=== PATIENT | female | born 1970 | race Caucasian/White ===

== ENCOUNTER → 2017-04-18 | Outpatient (CLI) | payer BC ==
--- NOTE | 2017-04-19 08:22 | REPMRS ---
Patient History The patient states she had a clinical breast exam in 04/24 No known family history of cancer. Digital Woman Screen Mammo: April 18, 2017 - Exam #: [id number] Bilateral CC and MLO view(s) were taken. Technologist: Michelle Valdovinos, Technologist Prior study comparison: January 05, 2016, digital woman screen mammo performed at [facility]. October 22, 2014, digital woman screen mammo performed at [facility]. February 25, 2010, bilateral digital mammo screening bilat performed at [facility] to [facility]. FINDINGS: There are scattered fibroglandular densities. There has been no change in the appearance of the mammogram from the prior studies. There is a mild amount of scattered fibroglandular density which is fairly symmetric. There is no interval development of dominant mass, architectural distortion, or clustered microcalcification suggestive of malignancy. ASSESSMENT: BI-RADS/ACR category 1 mammogram. Negative. Recommendation Routine screening mammogram in 1 year (for women over age 40). This mammogram was interpreted with the aid of an FDA-approved computer-aided dectection system. Electronically Signed By: Richardson Simon MD 04/19/17 0822
== END ==
LOC: M WHC 15:19
PROVIDERS: ATTEND Nurse Practitioner Family
DX: Z12.31 Encounter for screening mammogram for malignant neoplasm of breast (principal)

== ENCOUNTER → 2017-05-29 | Outpatient (CLI) | payer BC ==
[2017-05-29 19:40] LABS: BASO % 0.3 % (0.0-1.0); EOS # 0.1 10^3/uL (0.0-0.50); EOS % 1.1 % (0.0-3.0); IMMATURE GRANULOCYTE % 0.3 % (0-0); MEAN CORPUSCULAR HEMOGLOBIN 31.2 pg (27.0-33.0); MEAN CORPUSCULAR HGB CONC 33.8 g/dl (32.0-36.5); MEAN CORPUSCULAR VOLUME 92.3 fl (80.0-96.0); MONO # 0.5 10^3/uL (0.0-0.8); MONO % 7.2 % (0.0-5.0); NEUTROPHILS # 3.8 10^3/uL (1.8-7.7); NEUTROPHILS % 59.1 % (36.0-66.0); PLATELET COUNT, AUTOMATED 214 10^3/uL (150-450); RED CELL DISTRIBUTION WIDTH 12.5 % (11.5-14.5); WHITE BLOOD COUNT 6.4 10^3/uL (4.0-10.0)
[2017-05-29 20:16] LABS: PERCENT SATURATION 21.8 % (13.2-45.0)
== END ==
LOC: M WUC 14:58
PROVIDERS: ATTEND Physician Assistant Medical
DX: R42 Dizziness and giddiness (principal)

== ENCOUNTER → 2018-03-21 | Outpatient (CLI) | payer BC ==
[2018-03-21 16:02] LABS: ALBUMIN/GLOBULIN RATIO 1.25 (1.00-1.93); ALKALINE PHOSPHATASE 62 U/L (45-117); ALT/SGPT 17 U/L (12-78); ANION GAP 6 MEQ/L (8-16); AST/SGOT 16 U/L (7-37); BILIRUBIN,TOTAL 0.4 MG/DL (0.2-1.0); BLOOD UREA NITROGEN 7 MG/DL (7-18); CALCIUM LEVEL 8.7 MG/DL (8.5-10.1); CARBON DIOXIDE LEVEL 28 MEQ/L (21-32); CHLORIDE LEVEL 106 MEQ/L (98-107); CREATININE FOR GFR 0.77 MG/DL (0.55-1.30); FREE T4 1.07 NG/DL (0.76-1.46); GLOMERULAR FILTRATION RATE > 60.0 (>58); GLUCOSE, FASTING 83 MG/DL (70-100); POTASSIUM SERUM 4.5 MEQ/L (3.5-5.1); SODIUM LEVEL 140 MEQ/L (136-145); THYROID STIMULATING HORMONE 0.983 uIU/ML (0.358-3.740); TOTAL 25(OH) VITAMIN D 37.5 NG/ML (30.0-100.0); TOTAL PROTEIN 7.2 GM/DL (6.4-8.2)
== END ==
LOC: M WUC 10:21
DX: N18.9 Chronic kidney disease, unspecified (principal)
CPT/HCPCS: 84443

== ENCOUNTER → 2018-03-28 | Outpatient (CLI) | payer BC ==
[2018-03-28 20:33] LABS: C REACTIVE PROTEIN QUANTITATIV < 0.30 MG/DL (0.00-0.30); PHOSPHORUS LEVEL 3.9 MG/DL (2.5-4.9)
[2018-03-28 20:45] LABS: PTH INTACT 31.6 PG/ML (18.5-88.0)
[2018-03-30 12:59] LABS: ANTINUCLEAR ANTIBODIES DIRECT Negative (Negative)
== END ==
LOC: M WUC 17:19
DX: H18.429 Band keratopathy, unspecified eye (principal); R05 Cough
CPT/HCPCS: 84100

== ENCOUNTER → 2018-11-15 | Outpatient (CLI) | payer BC ==
--- NOTE | 2018-11-15 11:59 | REPMRS ---
Patient History The patient states she had a clinical breast exam in 11/2018. No known family history of cancer. 3D TOMOSYNTHESIS WAS PERFORMED. Digital Woman Screen Mammo: November 15, 2018 - Exam #: [id number] Bilateral CC and MLO view(s) were taken. Technologist: Michelle Valdovinos, Technologist Prior study comparison: April 18, 2017, digital woman screen mammo performed at [facility]. January 05, 2016, digital woman screen mammo performed at [facility]. FINDINGS: The breast tissue is heterogeneously dense. This may lower the sensitivity of mammography. There has been no change in the appearance of the mammogram from the prior studies. There is a moderate amount of residual fibroglandular tissue which is fairly symmetric. There is no interval development of dominant mass, areas of architectural distortion, or clustered microcalcification typical of malignancy. Assessment: BI-RADS/ACR category 1 mammogram. Negative Mammogram. Recommendation Routine screening mammogram in 1 year (for women over age 40). This mammogram was interpreted with the aid of an FDA-approved computer-aided dectection system. Electronically Signed By: Orlando Donaldson MD 11/15/18 8547
== END ==
LOC: M WHC 10:34
PROVIDERS: ATTEND Nurse Practitioner Family
DX: Z12.31 Encounter for screening mammogram for malignant neoplasm of breast (principal)

== ENCOUNTER → 2018-11-15 | Outpatient (REF) | payer BC ==
[2018-11-19 14:16] LABS: HPV HYBRID CAPTURE II Negative (Negative)
== END ==
LOC: M SFHCWAGY 11:21
PROVIDERS: ATTEND Nurse Practitioner Family
DX: Z12.4 Encounter for screening for malignant neoplasm of cervix (principal)
CPT/HCPCS: 87624; G0123

== ENCOUNTER → 2018-11-21 | Outpatient (CLI) | payer BC ==
--- NOTE | 2018-11-22 16:12 | REP ---
Clinical: Pelvic pain . Technique: Transabdominal pelvic ultrasound followed by transvaginal examination for better evaluation of the endometrium and adnexa with color Doppler evaluation of the ovaries. Findings: Bladder is unremarkable and measures 12.5 x 9.0 x 10.2 cm . Normal anteverted uterus measures 9.6 x 4.2 x 5.6 cm . The endometrial complex measures 6.3 mm thickness. No discrete uterine or endometrial abnormalities are appreciated. Incidental subcentimeter Nabothian cysts noted. Bilateral ovaries are normal in appearance and vascularity without evidence for torsion. Right ovary measures 1.7 x 1.4 x 2.3 cm ; R I = 0.44 . Left ovary measures 3.3 x 2.4 x 3.1 cm ; R I = 0.57 . No pelvic fluid or adnexal mass lesion . Impression: 1. Nabothian cysts. Otherwise normal pelvic ultrasound.
== END ==
LOC: M WHC 13:38
PROVIDERS: ATTEND Nurse Practitioner Family
DX: N88.8 Other specified noninflammatory disorders of cervix uteri (principal); R10.2 Pelvic and perineal pain

== ENCOUNTER 2019-03-12 09:34 | Day surgery (SDC) | payer BC ==
[~2019-03-12] VITALS: Ht 154.9 cm; Wt 70.2 kg
[~2019-03-12 09:34] MED LIST: LR 1,000 ML IV ONE; OMEP10CA78 PO; SM LTAB5 PO
[2019-03-12 10:00] LABS: HEMATOCRIT 43.7 % (36.0-47.0); HEMOGLOBIN 14.7 g/dl (12.0-15.5); MEAN CORPUSCULAR HGB CONC 33.6 g/dl (32.0-36.5); MEAN CORPUSCULAR VOLUME 95.2 fl (80.0-96.0); PLATELET COUNT, AUTOMATED 218 10^3/uL (150-450); RED BLOOD COUNT 4.59 10^6/uL (4.00-5.40); WHITE BLOOD COUNT 5.2 10^3/uL (4.0-10.0)
[2019-03-12 10:14] LABS: URINE PREG TEST NEGATIVE (NEGATIVE)
[2019-03-12 10:25] LABS: BLOOD UREA NITROGEN 8 MG/DL (7-18); CALCIUM LEVEL 8.5 MG/DL (8.5-10.1); CARBON DIOXIDE LEVEL 32 MEQ/L (21-32); CHLORIDE LEVEL 109 MEQ/L (98-107); GLOMERULAR FILTRATION RATE > 60.0 (>58); GLUCOSE, FASTING 94 MG/DL (70-100); POTASSIUM SERUM 4.3 MEQ/L (3.5-5.1); SODIUM LEVEL 142 MEQ/L (136-145)
[2019-03-12] MEDS ORDERED: fentaNYL 250 MCG/5 ML INJECTION (J3010) As Ordered ONE (10:35)
[2019-03-12] MEDS ORDERED: PROPOFOL 200 MG/20 ML VIAL As Ordered ONE (10:36)
[2019-03-12] MEDS ORDERED: MIDAZOLAM INJ 2 MG/2 ML VIAL (J2250) As Ordered ONE (10:36)
[2019-03-12] MEDS ORDERED: ONDANSETRON 4MG/2ML VIAL (J2405) As Ordered ONE (10:36)
[2019-03-12] MEDS ORDERED: ROCURONIUM BROMIDE 50 MG/5 ML VIAL As Ordered ONE (10:36)
[2019-03-12] MEDS ORDERED: dexameTHASONE 4 MG/ML 1ML VIAL (J1100) As Ordered ONE (10:36)
[2019-03-12] MEDS ORDERED: LIDOCAINE 2% INJ 100 MG/5 ML SDV (FOR ANES.) As Ordered ONE (10:36)
[2019-03-12] MEDS ORDERED: FLUORESCEIN 10% (100MG/ML) 5 ML VIAL As Ordered ONE (11:47)
[2019-03-12] MEDS ORDERED: BUPIVACAINE/EPIN 0.25% 30 ML VIAL As Ordered ONE (11:47)
[2019-03-12] MEDS ORDERED: METOCLOPRAMIDE INJ 10MG/2ML VIAL (J2765) As Ordered ONE (12:36)
[2019-03-12] MEDS ORDERED: KETOROLAC 60 MG/2 ML VIAL (J1885) As Ordered ONE (12:36)
[2019-03-12] MEDS ORDERED: SUGAMMADEX SODIUM 500 MG/5 ML VIAL (BRIDION) As Ordered ONE (12:37)
[2019-03-12] MEDS ORDERED: ACETAMINOPHEN 1000MG 100ML IV BTL (OFIRMEV) (J0131 PER 10MG) As Ordered ONE (12:40)
[2019-03-12] MEDS ORDERED: PERCOCET 5MG/325MG TAB PO PRN ×2 (13:30)
[2019-03-12] MEDS ORDERED: PERCOCET PO (13:34)
[2019-03-12] MEDS ORDERED: IBUP80TA PO (13:34)
[2019-03-12] MEDS ORDERED: oxyCODONE 5MG TAB As Ordered ONE (13:56)
[2019-03-12] MEDS ORDERED: HYDROMORPHONE HCL 0.5 MG/ 0.5 ML SYRINGE (J1170 PER 1) IV PRN (14:00)
[2019-03-12] MEDS ORDERED: LR 1,000 ML IV SCH (14:00)
[2019-03-12] MEDS ORDERED: PROMETHAZINE INJ 25 MG/ML VIAL (J2550) IV PRN (14:00)
[2019-03-12] MEDS ORDERED: oxyCODONE 5MG TAB PO PRN (14:00)
[2019-03-12] MEDS ORDERED: fentaNYL 100 MCG/2 ML INJECTION (J3010) IV PRN (14:00)
[2019-03-12] MEDS ORDERED: METOCLOPRAMIDE INJ 10MG/2ML VIAL (J2765) IV PRN (14:00)
[2019-03-12] MEDS ORDERED: ONDANSETRON 4MG/2ML VIAL (J2405) IV PRN (14:00)
[2019-03-12 14:38] VITALS: BP 149/80
[2019-03-12 15:33] VITALS: BP 117/72
[2019-03-12 16:40] VITALS: BP 117/72
[2019-03-12 17:40] VITALS: BP 138/78
[2019-03-12] MEDS: SIMETHICONE 80 MG CHEW TAB PO PRN (17:51)
[2019-03-12 18:35] VITALS: BP 130/78
[2019-03-12 19:40] VITALS: BP 107/61
[2019-03-12] MEDS: DOCUSATE SODIUM 100 MG CAP PO SCH (20:14)
[2019-03-12] MEDS: LR 1,000 ML IV SCH ×2 (20:14→21:27)
[2019-03-12] MEDS: IBUPROFEN 800 MG TAB PO SCH (21:59)
[2019-03-13 01:30] VITALS: BP 113/55
[2019-03-13] MEDS: IBUPROFEN 800 MG TAB PO SCH (04:32)
[2019-03-13] MEDS: SIMETHICONE 80 MG CHEW TAB PO PRN (04:33)
[2019-03-13] MEDS: LR 1,000 ML IV SCH (04:34)
[2019-03-13 06:00] VITALS: BP 107/60
--- NOTE | 2019-03-13 07:34 | RO ---
DATE OF PROCEDURE: 03/12/2019 Fatou is a 49-year-old female with extensive history of pelvic pain and irregular cycle. After counseling in the office, decision was made to proceed with a robotic-assisted total hysterectomy, removal of both tubes and ovaries, and cystoscopy. PREOPERATIVE DIAGNOSES: 1. Pelvic pain. 2. Irregular cycle. POSTOPERATIVE DIAGNOSES: 1. Pelvic pain. 2. Irregular cycle. PROCEDURE: 1. Robotic-assisted total hysterectomy. 2. Bilateral salpingo-oophorectomy. 3. Cystoscopy. SURGEON: Dr. Kyaw Wellington [employer] SERVICE OFFICER: Aicha Calixto ANESTHESIA: General. COMPLICATIONS: None. ESTIMATED BLOOD LOSS: Less than 50 mL. FINDGINS: An enlarged uterus with normal tubes and ovaries. On cystoscopy, bilateral ureters were found to be patent. No evidence of any bladder injury noted. DESCRIPTION OF PROCEDURE: After obtaining informed consent, the patient was taken to the operating room where general anesthetic was found to be adequate. She was then draped and prepped in the usual sterile fashion in the dorsal lithotomy position. At this point, a Harrington catheter was placed in the bladder for drainage. We then placed a HUMI II uterine manipulator. Attention was then turned to the abdomen where an 8 mm supraumbilical incision was made. Using the Veress needle, the abdomen was insufflated with CO2 gas to approximately 3.5 liters. We then inserted the 8 mm trocar under direct visualization. Two left 8 mm lateral ports were placed as well as one right 8 mm lateral port for robotic arm one and two and the assist port. At this point, the patient was placed in steep Trendelenburg. The robot was brought to the patient's right side and docked in the usual fashion. After docking the robot and proper targeting, the instruments were then placed, a vessel sealer as well as a bipolar grasper was placed. I then unscrubbed and went to the surgeon console and began the hysterectomy. The infundibulopelvic ligament was identified. This was cauterized and cut using the vessel sealer. Serial bites were then taken all the way down to the round ligament, the uterine artery to the uterosacral ligament. These were cauterized and cut. At this point, the anterior leaflet of the broad ligament was dissected to create a bladder flap. This was carried to the opposite side. The opposite side again was identified and the infundibulopelvic ligament was taken down in a similar fashion all the way down to the uterosacral ligament. After securing bilateral uterine arteries, the vessel sealer was removed and Endo shear was placed. Anterior and posterior colpotomy was then performed. The uterus, cervix, bilateral fallopian tubes and ovaries were removed through the vagina. At this point, 1 mL of Furacin was given by the anesthesiologist to assist in the cystoscopy. We then closed the vaginal cuff using a #2-0 V-Loc suture in a running fashion. The peritoneum over the vaginal cuff was also closed in a running fashion. The pelvis copiously irrigated with normal saline and suctioned out. I then rescrubbed and went to the patient's side and retrograde filled the bladder with 230 mL of normal saline. The Harrington catheter was removed. The cystoscope was inserted. Cystoscopy was performed. Bilateral urethral jets were noted on cystoscopy. No evidence of any bladder injury noted. At this point, the cystoscope was removed. The Harrington catheter was replaced to drain the bladder. I then turned my attention to the abdomen where the robotic ports were removed and the sites were closed using #3-0 Vicryl in a subcuticular fashion. 0.25% Marcaine was placed for postoperative pain. Dermabond placed. The patient tolerated procedure well. She was then transferred to the recovery room in stable condition.
[2019-03-13] MEDS: DOCUSATE SODIUM 100 MG CAP PO SCH (08:45)
== END 2019-03-13 10:17 | disposition home or self-care (01) ==
LOC: M SDC 09:34 → M MSPAV 14:29 → M SDC 03-13 10:17
PROVIDERS: ATTEND Obstetrics & Gynecology
DX: R10.2 Pelvic and perineal pain (principal); N92.6 Irregular menstruation, unspecified; N83.12 Corpus luteum cyst of left ovary; K21.9 Gastro-esophageal reflux disease without esophagitis; Z91.040 Latex allergy status; Z79.899 Other long term (current) drug therapy; F17.210 Nicotine dependence, cigarettes, uncomplicated
CPT/HCPCS: 36415; 58571; 80048; 84703; 85027; 86850; 86900; 86901; 88307; 96360; 96361; J0131; J0690; J1100; J1885; J2250; J2405; J2765; J3010

== ENCOUNTER → 2019-11-18 | Outpatient (CLI) | payer BC ==
[~2019-11-18] MED LIST changes: +IBUP80TA PO; -LR 1,000 ML IV ONE; +PERCOCET PO
--- NOTE | 2019-11-18 10:03 | REPMRS ---
Patient History The patient states she had a clinical breast exam in November 2019. Patient is postmenopausal. No known family history of cancer. Digital Woman Screen Mammo: November 18, 2019 - Exam #: [id number] Bilateral CC and MLO view(s) were taken. Technologist: Lexie Huffman, Technologist Prior study comparison: November 15, 2018, bilateral digital woman screen mammo performed at [facility]. April 18, 2017, digital woman screen mammo performed at [facility]. January 05, 2016, digital woman screen mammo performed at [facility]. FINDINGS: There are scattered fibroglandular densities. The Volpara volumetric breast density category is:B. There has been no change in the appearance of the mammogram from the prior studies. There is a mild amount of scattered fibroglandular density which is fairly symmetric. There is no interval development of dominant mass, architectural distortion, or grouped microcalcification suggestive of malignancy. 3-D tomosynthesis shows no additional findings. Assessment: BI-RADS/ACR category 1 mammogram. Negative Mammogram. Recommendation Routine screening mammogram of both breasts in 1 year (for women over age 40). This patient's Lifetime Breast Cancer Risk is estimated at 7.7 %. This mammogram was interpreted with the aid of an FDA-approved computer-aided dectection system. Electronically Signed By: Richardson Simon MD 11/18/19 6928
== END ==
LOC: M WHC 08:39
PROVIDERS: ATTEND Nurse Practitioner Family
DX: Z12.31 Encounter for screening mammogram for malignant neoplasm of breast (principal)

== ENCOUNTER → 2020-07-19 | Outpatient (CLI) | payer BC ==
[2020-07-19 11:57] LABS: HEMATOCRIT 41.9 % (36.0-47.0); MEAN CORPUSCULAR HEMOGLOBIN 30.8 pg (27.0-33.0); MEAN CORPUSCULAR HGB CONC 33.4 g/dl (32.0-36.5); MEAN CORPUSCULAR VOLUME 92.1 fl (80.0-96.0); PLATELET COUNT, AUTOMATED 214 10^3/uL (150-450); RED BLOOD COUNT 4.55 10^6/uL (4.00-5.40); WHITE BLOOD COUNT 4.9 10^3/uL (4.0-10.0)
[2020-07-19 12:52] LABS: BLOOD UREA NITROGEN 13 MG/DL (7-18); CARBON DIOXIDE LEVEL 30 MEQ/L (21-32); CHLORIDE LEVEL 105 MEQ/L (98-107); CHOLESTEROL LEVEL 239 MG/DL (<200); CHOLESTEROL RISK RATIO 5.085 (<5); CREATININE FOR GFR 0.87 MG/DL (0.55-1.30); GLOMERULAR FILTRATION RATE > 60.0 (>51); GLUCOSE, FASTING 87 MG/DL (70-100); HDL CHOLESTEROL 47 MG/DL (>40); LDL CHOLESTEROL 159 MG/DL (<100); NON-HDL-C 192 MG/DL; POTASSIUM SERUM 4.1 MEQ/L (3.5-5.1); SODIUM LEVEL 141 MEQ/L (136-145); TRIGLYCERIDES LEVEL 167 MG/DL (<150)
== END ==
LOC: M WUC 08:10
PROVIDERS: ATTEND Ophthalmology
DX: H18.421 Band keratopathy, right eye (principal)

== ENCOUNTER → 2020-08-20 | Outpatient (CLI) | payer BC ==
[~2020-08-20] MED LIST changes: +CELE1CAP9; +CLAR10CA3 PO; +MM S100C PO; +SYST1SOL4 OP; +primrose oil PO
== END ==
LOC: M LABSMTC 11:10
PROVIDERS: ATTEND Anesthesiology
DX: Z01.812 Encounter for preprocedural laboratory examination (principal); Z20.822 Contact with and (suspected) exposure to COVID-19

== ENCOUNTER 2020-08-25 12:21 | Day surgery (SDC) | payer BC ==
[~2020-08-25] VITALS: Ht 154.9 cm; Wt 72.1 kg
[~2020-08-25 12:21] MED LIST changes: +NS 1,000 ML IV ONE
--- OUTSIDE RECORDS SUMMARY | 2020-08-25 12:25 | CCD | Continuity of Care Document ---
Author Fatou Levi BROWN SOURER Organization Unknown Address [address], [address] [place] [address] Phone [phone] Care Team Providers Care Fur Pointer Name Role Phone Fina Wen N.P. AUTM [phone] Problems Description No Information Available Social History Type Date Description Comments Sex Unknown Tobacco Use Start: Unknown currently smokes 1/2 Pack Daily Recreational Drug Use Denies Drug Use Tobacco Use Start: Unknown Patient is a current smoker, smo kes every day 1/2-1 PPD Allergies, Adverse Reactions, Alerts Active Allergies Reaction Severity Comments Date Latex 08/09/2020 Medications Active Medications SIG Qnty Indications Ordering Provide r Date Flonase 50mcg/Act Suspension 2 sprays per nostril daily 3monthsu 472.0 Vahe Hall MD 08/04/2009 Loratadine 10mg Tablets 1 tab po qd Unknown Celecoxib 200mg Capsules 1 ta b po qd Fina Wen, N.P. Fluzone Quadrivalent Suspe nsion as Directed Unknown Docusate Sodium 100mg Capsules 1 by mouth twice a day Unknown Evening Melvin Oil 1000mg Capsul es 1 tab po bid Unknown Immunizations Description No Information Available Vital Signs Date Vital Result Comment 08/09/2020 1:23pm BP Systolic 122 mmHg BP Diastolic 64 mmHg Height 63 inches 5'3" Weight 164.12 lb BMI (Body Mass Index) 29.1 kg/m2 Ruth Body Weight 115 lb Weight 74.447 kg BSA (Body Surface Area) 1.78 m2 08/04/2009 1:53pm Body Temperature 98.1 F Height 63 inches 5'3" Weight 201.00 lb BMI (Body Mass Index) 35.6 kg/m2 Ruth Body Weight 115 lb Weight 91.174 kg Results Description No Information Available Procedures Description No Information Available Medical Devices Description No Information Available Encounters Description No Information Available Assessments Date Code Description Provider 08/09/2020 Z12.11 Encounter for screening for ramirez gnant neoplasm of colon Stan Rodriguez NP Plan of Treatment No Information Available Functional Status Description No Information Available Mental Status Description No Information Available Referrals Refer to Reason for Referral Status Appt Date Orlando Mosqueda D.O. COLONOSCOPY Scheduled 08/03/[address] [place] [phone]
--- OUTSIDE RECORDS SUMMARY | 2020-08-25 12:26 | CCD ---
Author Author Pradeep Azevedo MD [facility] Organization Pradeep Azevedo MD [facility] Address [address] [address] Phone Care Team Providers Care Intelligent Systems Engineer Name Role Phone Stan OD, Froilan PP [phone] Guadalupe DO, Edward Unavailable [phone] Neha Erickson M.D. Unavailable [phone] Reason for Referral No Reason for Referral Recorded Problems Includes: Active, inactive, and resolved Problems All Visits Onset Date - Time Resolved Date - Time Provider Co ndition Status Corneal Degeneration Band Keratopathy 07/06/2020 - 12:00AM Edward Butcher DO Active Corneal Scar 07/06/2020 - 12:00AM Edward Butcher DO Inactive Cataract Senile Nuclear 07/06/2020 - 12:00AM Edward gonzalez DO Active Dry Eye Syndrome 07/06/2020 - 12:00AM Edward fisher DO Active Vitreous Disorders Degeneration 07/06/2020 - 12:00AM Darya Butcher DO Active Plan of Treatment Pending Tests Order Diagnosis Results Due Ordering Provi chris Lab BMP- 08/05/20 Edward Macdonald in DO Lab CBC- 08/05/20 Edward Macdonald in DO Assessments Includes: Assessments for all patient encounters Findings Encounter Date Band keratopathy NEW PATIENT WITH REFERRAL with Edward gonzalez DO 07/06/2020 Dry eye syndrome NEW PATIENT WITH REFERRAL with Edward gonzalez DO 07/06/2020 Nuclear senile cataract NEW PATIENT WITH REFERRAL with Junito Butcher DO 07/06/2020 Vitreous degeneration NEW PATIENT WITH REFERRAL with Edward Butcher DO 07/06/2020 Instructions Instructions not supported for this document typeNo Instructions Recorded Medical Equipment - Implanted Devices Includes: Current and historical DevicesNo Medical Equipment Recorded Medications Includes: Current and historical Medications Current Medications (continue as prescribed) Loratadine 10 MG Oral Tablet 07/06/2020 Provider: Diagnosis: Omeprazole 20 MG Oral Capsule Delayed Release 07/06/2020 Provider: Diagnosis: Docusate Sodium 100 MG Oral Capsule 07/06/2020 Prov ider: Diagnosis: Black Cohosh 40 MG Oral Capsule 07/06/2020 Provider : Diagnosis: Medications Administered Includes: Administered Medications in patient's chartNo Administered Medications Recorded Vital Signs Includes: Vital Signs from 07/06/2019 through 07/06/2020No Vital Signs Recorded For Specified Dates Results Includes: Results from 07/06/2019 through 07/06/2020No Results Recorded For Specified Dates History of Present Illness History of Present Illness not supported for this document typeNo History of Present Illness Recorded Social History Description Last Updated Alcohol consumption occasionally 07/06/2020 Smoking 0.5 packs of cigarettes per day 07/06/2020 Not using drugs 07/06/2020 Tobacco use 07/06/2020 Current smoker 07/06/2020 Smoking status : Current everyday smoker 07/06/2020 Procedures and Surgical History Includes: Procedures from 07/06/2019 through 07/06/2020 Procedures Code Diagnosis Performing Provider Service Location Service Date Medical Eye Exam 10061 Band keratopathy, ri ght eye, Age-related nuclear cataract, bilateral, Dry eye syndrome of bilateral lacrimal glands Edward Butcher DO 07/06/2020 Surgical History Last Updated Surgical / procedural history Appendect zainab 86/87, [place] Teeth Removal 2015, Hysterectomy 03/2019, 07/06/2020 Medical History Includes: Medical History in patient's chart Description Last Updated Reported medical history Left Leg Injur y 2001, Right Leg Injury 2006, Menopause, Allergies, Reflux 07/06/2020 Currently wearing eyeglasses 07/06/2020 Family History Includes: Family History in patient's chart Description Last Updated Daughter's history of multiple sclerosis 07/06/2020 Daughter's history of thyroid disorder 07/06/2020 Maternal history of strabismus 07/06/2020 Maternal history of thyroid disorder 07/06/2020 Son's history of multiple sclerosis 07/06/2020 Review of Systems Review of Systems not supported for this document typeNo Review of Systems Recorded Mental Status Mental Status not supported for this document type Description Oriented to time, place, and person Functional Status Functional Status not supported for this document typeNo Functional Status Recorded Physical Exam Physical Exam not supported for this document typeNo Physical Exam Recorded Immunizations Includes: Immunizations in patient's chartNo Immunizations Recorded Allergies Includes: Active, inactive, and resolved AllergiesNo Known Allergies Encounters Includes: Encounters from 07/06/2019 through 07/06/2020 Encounter Provider Location Date Check-In Time Check-Out Time D iagnosis NEW PATIENT WITH REFERRAL Edward Guadalupe Tena MD [facility] 07/06/2020 7:25AM 8:27AM Dry Eye Syndrome, Co rneal Degeneration Band Keratopathy, Cataract Senile Nuclear, Vitreous Disorders Degeneration Insurance Includes: Active Insurance Policies Plan Name Member ID Group # Subscriber Relationship Effective Da addi 1 - [employer]/BS [id number] Gilbo, Gene Advance Directives Includes: Current Advance DirectivesNo Advance Directives Recorded Health Concerns Includes: Active Health ConcernsNo Active Health Concerns Recorded Goals Includes: Active GoalsNo Active Goals Recorded Interventions Includes: Interventions for active GoalsNo Interventions Recorded Evaluations & Outcomes Includes: Evaluations & Outcomes for active GoalsNo Outcomes Recorded
--- OUTSIDE RECORDS SUMMARY | 2020-08-25 12:26 | CCD ---
Author Author [facility] Organization [facility] Address Unknown Phone Unavailable Care Team Providers Care Pigment And Lacquer Mixer Name Role Phone Pleskach, Fina HOME MANAGEMENT SUPERVISOR Unavailable Unavailable Pleskach, Fina HOME MANAGEMENT SUPERVISOR Unavailable Unavailable Pleskach, Fina HOME MANAGEMENT SUPERVISOR Unavailable Unavailable Pleskach, Fina HOME MANAGEMENT SUPERVISOR Unavailable Unavailable Pleskach, Fina HOME MANAGEMENT SUPERVISOR Unavailable Unavailable Pleskach, Fina HOME MANAGEMENT SUPERVISOR Unavailable Unavailable Pleskach, Fina HOME MANAGEMENT SUPERVISOR Unavailable Unavailable Pleskach, Fina HOME MANAGEMENT SUPERVISOR Unavailable Unavailable Pleskach, Fina HOME MANAGEMENT SUPERVISOR Unavailable Unavailable Pleskach, Fina HOME MANAGEMENT SUPERVISOR Unavailable Unavailable Pleskach, Fina HOME MANAGEMENT SUPERVISOR Unavailable Unavailable Pleskach, Fina HOME MANAGEMENT SUPERVISOR Unavailable Unavailable Pleskach, Fina HOME MANAGEMENT SUPERVISOR Unavailable Unavailable Pleskach, Fina HOME MANAGEMENT SUPERVISOR Unavailable Unavailable Pleskach, Fina HOME MANAGEMENT SUPERVISOR Unavailable Unavailable Pleskach, Fina HOME MANAGEMENT SUPERVISOR Unavailable Unavailable Pleskach, Fina HOME MANAGEMENT SUPERVISOR Unavailable Unavailable Pleskach, Fina HOME MANAGEMENT SUPERVISOR Unavailable Unavailable Pleskach, Fina HOME MANAGEMENT SUPERVISOR Unavailable Unavailable Pleskach, Fina HOME MANAGEMENT SUPERVISOR Unavailable Unavailable Pleskach, Fina HOME MANAGEMENT SUPERVISOR Unavailable Unavailable Pleskach, Fina HOME MANAGEMENT SUPERVISOR Unavailable Unavailable Pleskach, Fina HOME MANAGEMENT SUPERVISOR Unavailable Unavailable Pleskach, Fina HOME MANAGEMENT SUPERVISOR Unavailable Unavailable Pleskach, Fina HOME MANAGEMENT SUPERVISOR Unavailable Unavailable Pleskach, Fina HOME MANAGEMENT SUPERVISOR Unavailable Unavailable Pleskach, Fina HOME MANAGEMENT SUPERVISOR Unavailable Unavailable Pleskach, Fina HOME MANAGEMENT SUPERVISOR Unavailable Unavailable Pleskach, Fina HOME MANAGEMENT SUPERVISOR Unavailable Unavailable Pleskach, Fina HOME MANAGEMENT SUPERVISOR Unavailable Unavailable Jolie BUTCHER PB DO Unavailable [phone] Jolie BUTCHER PB DO Unavailable [phone] Jolie BUTCHER PB DO Unavailable [phone] Jolie BUTCHER PB DO Unavailable [phone] Jolie BUTCHER PB DO Unavailable [phone] Jolie BUTCHER PB DO Unavailable [phone] Jolie BUTCHER PB DO Unavailable [phone] Jolie BUTCHER PB DO Unavailable [phone] Jolie BUTCHER PB DO Unavailable [phone] Jolie BUTCHER PB DO Unavailable [phone] Jolie BUTCHER PB DO Unavailable [phone] Jolie BUTCHER PB DO Unavailable [phone] Jolie BUTCHER PB DO Unavailable [phone] Jolie BUTCHER PB DO Unavailable [phone] Jolie BUTCHER PB DO Unavailable [phone] Jolie BUTCHER PB DO Unavailable [phone] Jolie BUTCHER PB DO Unavailable [phone] Jolie BUTCHER PB DO Unavailable [phone] Jolie BUTCHER PB DO Unavailable [phone] Jolie BUTCHER PB DO Unavailable [phone] Jolie BUTCHER PB DO Unavailable [phone] Kareen CONNOR Unavailable Unavailable NIKOLAS, K JIMMY HALEY Unavailable Unavailable NIKOLAS, K JIMMY HALEY Unavailable Unavailable NIKOLAS, K JIMMY HALEY Unavailable Unavailable NIKOLAS, K JIMMY HALEY Unavailable Unavailable NIKOLAS, K JIMMY PA Unavailable Unavailable NIKOLAS, K JIMMY PA Unavailable Unavailable NIKOLAS, K JIMMY PA Unavailable Unavailable NIKOLAS, K JIMMY PA Unavailable Unavailable NIKOLAS, K JIMMY PA Unavailable Unavailable NIKOLAS, K JIMMY PA Unavailable Unavailable NIKOLAS, K JIMMY PA Unavailable Unavailable NIKOLAS, K JIMMY PA Unavailable Unavailable NIKOLAS, K JIMMY PA Unavailable Unavailable NIKOLAS, K JIMMY PA Unavailable Unavailable NIKOLAS, K JIMMY PA Unavailable Unavailable NIKOLAS, K JIMMY PA Unavailable Unavailable NIKOLAS, K JIMMY PA Unavailable Unavailable NIKOLAS, K JIMMY PA Unavailable Unavailable NIKOLAS, K JIMMY PA Unavailable Unavailable Re-disclosure Warning The records that you are about to access may contain information from federally-assisted alcohol or drug abuse programs. If such information is present, then the following federally mandated warning applies: This information has been disclosed to you from records protected by federal confidentiality rules (42 CFR part 2). The federal rules prohibit you from making any further disclosure of this information unless further disclosure is expressly permitted by the written consent of the person to whom it pertains or as otherwise permitted by 42 CFR part 2. A general authorization for the release of medical or other information is NOT sufficient for this purpose. The Federal rules restrict any use of the information to criminally investigate or prosecute any alcohol or drug abuse patient.The records that you are about to access may contain highly sensitive health information, the redisclosure of which is protected by Article 27-F of the [place] State Public Health law. If you continue you may have access to information: Regarding HIV / AIDS; Provided by facilities licensed or operated by the [facility] Office of Mental Health; or Provided by the [facility] Office for People With Developmental Disabilities. If such information is present, then the following [facility] mandated warning applies: This information has been disclosed to you from confidential records which are protected by state law. State law prohibits you from making any further disclosure of this information without the specific written consent of the person to whom it pertains, or as otherwise permitted by law. Any unauthorized further disclosure in violation of state law may result in a fine or correction sentence or both. A general authorization for the release of medical or other information is NOT sufficient authorization for further disc losure. Allergies and Adverse Reactions Type Description Substance Reaction Status Data Source(s ) Allergy to substance No Known Allergies No known allergies (situation ) IZABELA (Pradeep Coe MD [facility]) Family History Family Member Name Family Member Gender Family Member Status Date o f Status Description Data Source(s) Unknown Unknown Problem [facility] Encounters Encounter Providers Location Date Indications Data Source(s ) Outpatient Attender: Fina Wen [facility] Main Office 07/30/2020 0 7:15:00 AM EST [facility] Outpatient<td ID="encounterTypeDescripti onID0">NEW PATIENT WITH REFERRAL</td><td>Pb Butcher DO</td><td>Pradeep Azevedo MD [facility]</td><td>07/06/2020</td><td>7:25AM</td><td>8:27AM</td><td><content ID="encounterDiagnosisID0-0">Dry Eye Syndrome</content>, <content ID="encounterDiagnosisID0-1">Corneal Degeneration Band Keratopathy</content>, <content ID="encounterDiagnosisID0-2">Cataract Senile Nuclear</content>, <content ID="encounterDiagnosisID0-3">Vitreous Disorders Degeneration</content></td> Attender: PB Tena MD [facility] 07/06/2020 07:25:00 AM EST - 07/06/2020 08:27:00 AM ES T Vitreous Disorders DegenerationCataract Senile NuclearCorneal Degeneration Band KeratopathyDry Eye Syndrome [place] (Pradeep Coe MD [facility]) Vitreous Disorders Degeneration 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 Dry Eye Syndrome Outpatient Referrer: JIMMY HALEY 11/27/2019 05:45:00 AM EDT [facility] [address] [place] [address] 11/18/2019 12:00:00 AM EDT eCW1 (Formerly [facility]) Immunizations Vaccine Date Status Description Data Source(s) INFLUENZA VIRUS VACCINE QUADRIVALENT 2019- (6 MOS AN D UP) 06/02/2020 12:00:00 AM EST [facility] Medications Medication Brand Name Start Date Product Form Dose Route Admi nistrative Instructions Pharmacy Instructions Status Indications Reaction Description Data Source(s) 17.5-3.13-1.6 gram 08/18/2020 12:00:00 AM EST recon soln 354 TAKE DIRECTED PER DOCTOR BOWEL PREP TAKE DIRECTED PER DOCTOR BOWEL PREP SOLD: 08/20/2020 [facility] celecoxib 200 MG Oral Capsule Celecoxib 07/30/2020 12:00:00 AM EST ORAL active [facility] 200 mg 07/30/2020 12:00:00 AM EST capsule 30 TAKE ONE CAPSULE BY MOUTH EVERY DAY TAKE ONE CAPSULE BY MOUTH EVERY DAY SOLD: 07/30/2020 [facility] Omeprazole 20 MG Delayed Release Oral Ca psule Omeprazole 20 MG Oral Capsule Delayed Release Omeprazole 20 MG Oral Capsule Delayed Release 07/06/20 20 12:00:00 AM EST 1 active omeprazole 20 MG Delayed Release Oral Capsule IZABELA (Pradeep Coe MD [facility]) Docusate Sodium 100 MG Oral Capsule Docusate Sodium 100 MG O ral Capsule 07/06/2020 12:00:00 AM EST 1 active docusate sodium 100 MG Oral Capsule IZABELA (Pradeep Coe MD [facility]) Black Cohosh 40 MG Oral Capsule Black Cohosh 40 MG Oral Caps ule 07/06/2020 12:00:00 AM EST 1 active Black Co hosh IZABELA (Pradeep Coe MD [facility]) Loratadine 10 MG Oral Tablet Loratadine 10 MG Oral Tablet 12:00:00 AM EST 1 active loratadine 10 MG Oral Tablet IZABELA (Pradeep Coe MD [facility]) Insurance Providers Payer name Policy type / Coverage type Policy ID Covered democrat ID Covered democrat's relationship to moreira Policy [place] Plan Information [place]/307 [id number] SP [id number] [place]/307 [id number] [id number] BCBS of [facility] Other 0 Family Depe ndent Gene Gilbo 0 EXCELLUS BCBS B [id number] P UPO [id number] [place] 302/307 [id number] SP [id number] ANSI-Commercial [id number] [facility] Health Maintenance Organization (O) [id number] Family Dependent [id number] [facility] Health Maintenance Organization (O) [id number] Family Dependent [id number] [facility] Health Maintenance Organization (O) [id number] Family Dependent [id number] BCBS [place] [id number] BS [facility] Health Maintenance Organization (O) [id number] Family Dependent [id number] BS Of [facility] Maintenance Organization ([facility]) Self BCBS [place] 302/307 [id number] SP [id number] [place] BCBS P [id number] S [id number] Problems, Conditions, and Diagnoses Code Display Name Description Problem Type Effective Dates Data Source(s) 379.21 Vitreous Disorders Degeneration Vitreous Disorders Deg eneration Problem 07/06/2020 12:00:00 AM EST IZABELA (Pradeep Coe MD [facility]) 375.15 Dry Eye Syndrome Dry Eye Syndrome Problem 07/06/2020 12 :00:00 AM EST IZABELA (Pradeep Coe MD [facility]) 366.16 Cataract Senile Nuclear Cataract Senile Nuclear Proble m 07/06/2020 12:00:00 AM EST IZABELA (Pradeep Coe MD [facility]) 371.03 Corneal Scar Corneal Scar Problem 07/06/2020 12:00:00 A M EST IZABELA (Pradeep Coe MD [facility]) 371.43 Corneal Degeneration Band Keratopathy Co rneal Degeneration Band Keratopathy Problem 07/06/2020 12:00:00 AM EST IZABELA (Junito Coe MD [facility]) E89.41 [id number] Surgical menopause, symptomatic Problem 11/18/2019 12:00:00 AM EDT eCW1 (Formerly [facility]) Surgeries/Procedures Procedure Description Date Indications Data Source(s) Surgical / procedural history Appendect zainab 86/87, [place] Teeth Removal 2015, Hysterectomy 03/2019, Surgical / procedural history Appendect zainab 86/87, [place] Teeth Removal 2016, Hysterectomy 03/2019, 07/06/2020 12:00:00 AM EST IZABELA (Pradeep Coe MD [facility]) Medical Eye Exam Medical Eye Exam 07/06/2020 12:00:00 AM EST IZABELA (Pradeep Coe MD [facility]) Mammogram 07/09/2019 12:00:00 AM EST M [facility] ([facility] Done through [facility]. Results ID Date Data Source [id number] 08/20/2020 09:40:00 AM EST [facility] Name Value Range Interpretation Code Description Data Taylor rce(s) Supporting Document(s) SARS coronavirus 2 RNA Not Detected [facility] [place] This lab was ordered by [facility] and reported by [facility]. Procedure Social History Code Duration Value Status Description Data Source(s ) Smoking 07/06/2020 08:31:59 AM EST Smokes tobacco daily (findi ng) completed Smokes tobacco daily (finding) IZABELA (Pradeep Coe MD [facility]) Vital Signs ID Date Data Source UNK Name Value Range Interpretation Code Description Data Source(s) Body surface area Derived from formula 1.78 m2 1.78 m2 [facility] ([facility]) Body weight 74.447 kg 74.447 kg [facility] ([facility]) Tower body weight 115 [lb_av] 115 [lb_av] [facility] Body mass index (BMI) [Ratio] 29.1 kg/m2 29.1 k g/m2 [facility] ([facility]) Body weight 164.12 [lb_av] 164.12 [lb_av] [facility] Body height 63 [in_i] 63 [in_i] [facility] ([facility]) 5'3" Diastolic blood pressure 64 mm[Hg] 64 mm[Hg] [facility] ([facility]) Systolic blood pressure 122 mm[Hg] 122 mm[Hg] [facility] Body mass index (BMI) [Ratio] 29.5 kg/m2 29.5 k g/m2 [facility] ([facility] Tower body weight 110 [lb_av] 110 [lb_av] [facility] ([facility] Oxygen saturation in Arterial blood by Pulse oximetry 97 % 97 % [facility] ([facility] Body weight 161.25 [lb_av] 161.25 [lb_av] [facility] ([facility] Body height 62 [in_i] 62 [in_i] [facility] 5'2" Respiratory rate 16 /min 16 /min [facility] ( [facility] Body temperature 97.3 [degF] 97.3 [degF] [facility] Heart rate 70 /min 70 /min [facility] Diastolic blood pressure 82 mm[Hg] 82 mm[Hg] [facility] Systolic blood pressure 124 mm[Hg] 124 mm[Hg] M EDENT ([facility] Diastolic blood pressure 70 mm[Hg] 70 mm[Hg] eCW1 ([facility]) Systolic blood pressure 122 mm[Hg] 122 mm[Hg] e CW1 ([facility]) Body mass index (BMI) [Ratio] 29.37 kg/m2 29.37 kg/m2 eCW1 ([facility]) Body height [in_us] eCW1 ([facility]) Body weight Measured 158 [lb_av] 158 [lb_av] eC W1 ([facility])
--- OUTSIDE RECORDS SUMMARY | 2020-08-25 12:26 | CCD | Continuity of Care Document ---
Author Author Fatou WEN [facility] Organization Unknown Address [address] [place] [address] Phone [phone] Care Team Providers Care Is Consultant Name Role Phone [facility] - Surgery AUTM [phone] Problems Description No Information Available Social History Type Date Description Comments Sex Unknown Tobacco Use Start: Unknown Never Used Smokeless Tobacco ETOH Use Occasionally consumes alcohol Tobacco Use Start: Unknown Patient is a current smoker, smo kes every day 1/2- 1ppd since age 14 Smoking Status Reviewed: 07/30/20 Patient is a current smoker, smokes every day 1/2-1ppd since age 14 Sun Exposure Moderate amount of sun exposure Sun Exposure Uses 15-30 SPF Seat Belt/Car Seat Always uses seat belt Bike Helmet Never Smoke Alarms Yes Smoke Alarms Carbon Monoxide Detector: Yes Allergies, Adverse Reactions, Alerts Description No Known Drug Allergies Medications Active Medications SIG Qnty Indications Ordering Provide r Date Celecoxib 200mg Capsules 1 by mouth every day 90caps M15.0 Fina Wen FNP 07/30/2020 Fluticasone Propionate 50mcg/Act Suspension two sprays each side of nose daily asneeded 16gm J30 .9 Harshad Vega M.D. 05/25/2015 Ibuprofen 200mg Tablets 3 tabs bid prn for leg pain 60tabs [facility] M.D[facility] [address] 1 by mouth every day Unknown Loratadine 10mg Tablets take one tablet by mouth every day for allergy symptoms Unknown Black Cohosh 20mg Tablets 1 tab po bid Unknown Colace 100mg Capsules 1 cap by mouth twice a day Unknown Immunizations CPT Code Status Date Vaccine Lot # [id number] Given 03/27/2018 Influenza Virus Vaccine, Quadrivalent,age 3 and up,multidose vial [id number] Given 05/28/2017 Influenza Virus Vaccine, Quadrivalent,age 3 and up,multidose vial [id number] Given 05/31/2016 Influenza Vaccination [id number] Given 04/16/2015 Influenza Vaccination Vital Signs Date Vital Result Comment 07/30/2020 8:37am BP Systolic 124 mmHg BP Diastolic 82 mmHg Heart Rate 70 /min Body Temperature 97.3 F Respiratory Rate 16 /min Height 62 inches 5'2" Weight 161.25 lb O2 % BldC Oximetry 97 % Peak Expiratory Flow Rate 342 Estimated Peak Flow Rate [place] Body Weight 110 lb BMI (Body Mass Index) 29.5 kg/m2 08/29/2018 9:29am BP Systolic 110 mmHg BP Diastolic 71 mmHg Heart Rate 66 /min Body Temperature 99.3 F Respiratory Rate 16 /min Height 61.50 inches 5'1.50" Weight 155.25 lb O2 % BldC Oximetry 98 % Peak Expiratory Flow Rate 337 Estimated Peak Flow Rate [place] Body Weight 105 lb BMI (Body Mass Index) 28.9 kg/m2 Results Description No Information Available Procedures Date Code Description Status 07/09/2019 [id number] Mammogram Completed Medical Devices Description No Information Available Encounters Type Date Location Provider Dx Diagnosis Office Visit 07/30/2020 8:15a Main Office Fina Wen, LIFE TEACHER Z00.0 0 Encntr for general adult medical exam w/o abnormal findings K21.9 Gastro-esophageal reflux dis ease without esophagitis M15.0 Primary generalized (osteo)a rthritis E78.2 Mixed hyperlipidemia F17.210 Nicotine dependence, cigaret addi, uncomplicated Assessments Date Code Description Provider 07/30/2020 Z00.00 Encounter for general adult medi theodore examination without abno Fina Wen, ALIA 07/30/2020 K21.9 Gastro-esophageal reflux disease without esophagitis Fina Wen, LIFE TEACHER 07/30/2020 M15.0 Primary generalized (osteo)arthr itis Fina Wen, LIFE TEACHER 07/30/2020 E78.2 Mixed hyperlipidemia Darya Wen LIFE TEACHER 07/30/2020 F17.210 Nicotine dependence, cigarettes, uncomplicated Fina Wen FNP Plan of Treatment 07/30/2020 - Fina Wen FNP* Z00.00 Encounter for general adult medical examination without abno* Comments:* Health maintenance up to date. Overall doing well. CHANCE/PHQ 9/CAGE questionnaire reviewed. Discussed healthy lifestyle choices. * Follow up:* annually * K21.9 Gastro-esophageal reflux disease without esophagitis* Comments:* doing well on OTC omeprazole * M15.0 Primary generalized (osteo)arthritis* New Medication:* Celecoxib 200 mg - 1 by mouth every day * Comments:* start celebrex and see response * E78.2 Mixed hyperlipidemia* Comments:* Discussed with patient the risks and benefits of statin therapy. At this time she declines and is going to work on diet, exercise and smoking cessation. ASCVD (Atherosclerotic Cardiovascular Disease) Risk Algorithm including Known ASCVD from AHA/ACC from [email or web address] on 07/30/2020 All calculations should be rechecked by clinician prior to use RESULT SUMMARY: Moderate-intensity statin recommended because of 10-year risk between 5-7.5%.To view statin dosages by intensity, see Evidence section.5.1% Risk of cardiovascular event (coronary or stroke or non- fatal IA or stroke) in next 10 years.INPUTS:History of ASCVD > 0 = NoLDL Cholesterol =190mg/dL (4.92 mmol/L) > 0 = NoAge > 50 yearsDiabetes > 0 = NoSex > 0 = FemaleRace > 1 = WhiteTotal Cholesterol > 239 mg/dLHDL Cholesterol > 47 mg/dLSystolic Blood Pressure > 124 mm HgTreatment for Hypertension > 0 = NoSmoker > 1 = Yes * Recommendations:* Work on improving diet and increasing exercising. Aim to get 30 minutes of moderate intensity exercise 5 days a weeks. * F17.210 Nicotine dependence, cigarettes, uncomplicated* Comments:* Smoking cessation discussed. Risk of cardiovascular disease, cancer and stroke emphasized. Patient offered assistance with smoking cessation. * Recommendations:* smoking cessation advised * All * Referral:* [facility], Surgery,General Functional Status Functional Condition Comment Date Status Glasses Active Independent with all IADL's Acti ve Independent with all ADL's Activ e Mental Status Mental Condition Comment Date Status None Active Referrals Refer to Reason for Referral Status Appt Date [facility] Practice pt is due for screening c olonoscopy Scheduled 08/03/[address] [place] [address], [address] [place] [id number] [phone]
--- OUTSIDE RECORDS SUMMARY | 2020-08-25 12:26 | CCD | Continuity of Care Document ---
Author Author Fatou WEN [facility] Organization Unknown Address [address] [place] [address] Phone [phone] Problems Description No Information Available Social History [...] CPT Code Status Date Vaccine Lot # [id number] Given 03/27/2018 Influenza Virus Vaccine, Quadrivalent,age 3 and up,multidose vial [id number] [id number] Given 05/28/2017 Influenza Virus Vaccine, Quadrivalent,age 3 and up,multidose vial [id number] [id number] Given 05/31/2016 Influenza Vaccination [id number] Given 04/16/2015 Influenza Vaccination Vital Signs Date Vital Result Comment 07/30/2020 8:37am BP Systolic 124 mmHg BP Diastolic 82 mmHg Heart Rate 70 /min Body Temperature 97.3 F Respiratory Rate 16 /min Height 62 inches 5'2" Weight 161.25 lb O2 % BldC Oximetry 97 % Peak Expiratory Flow Rate 342 Estimated Peak Flow Rate [place] Body Weight 110 lb BMI (Body Mass Index) 29.5 kg/m2 08/29/2018 9:29am BP Systolic 110 mmHg BP Diastolic 71 mmHg Heart Rate 66 /min Body Temperature 99.3 F Respiratory Rate 16 /min Height 61.50 inches 5'1.50" Weight 155.25 lb O2 % BldC Oximetry 98 % Peak Expiratory Flow Rate 337 Estimated Peak Flow Rate [place] Body Weight 105 lb BMI (Body Mass Index) 28.9 kg/m2 Results Description No Information Available Procedures Date Code Description Status 07/09/2019 [id number] Mammogram Completed Medical Devices Description No Information Available Encounters Type Date Location Provider Dx Diagnosis Office Visit 07/30/2020 8:15a Main Office Fina Wen FNP Z00.0 0 Encntr for general adult medical exam w/o abnormal findings K21.9 Gastro-esophageal reflux dis ease without esophagitis M15.0 Primary generalized (osteo)a rthritis E78.2 Mixed hyperlipidemia F17.210 Nicotine dependence, cigaret addi, uncomplicated Assessments Date Code Description Provider 07/30/2020 Z00.00 Encounter for general adult medi theodore examination without abno Fina Wen, ALIA 07/30/2020 K21.9 Gastro-esophageal reflux disease without esophagitis Fina Wen, ALIA 07/30/2020 M15.0 Primary generalized (osteo)arthr itis Fina Wen, ALIA 07/30/2020 E78.2 Mixed hyperlipidemia Pleskach, M camryn, OPERATIONS EXPERT 07/30/2020 F17.210 Nicotine dependence, cigarettes, uncomplicated PleskFina little, ALIA Plan of Treatment 07/30/2020 - Fina Wen [...] - 1 by mouth every day * E78.2 Mixed hyperlipidemia* Recommendations:* Work on improving diet and increasing exercising. Aim to get 30 minutes of moderate intensity exercise 5 days a weeks. * F17.210 Nicotine dependence, cigarettes, uncomplicated* Comments:* Smoking cessation discussed. Risk of cardiovascular disease, cancer and stroke emphasized. Patient offered assistance with smoking cessation. * Recommendations:* smoking cessation advised Functional Status Functional Condition Comment Date Status Glasses Active Independent with all IADL's Acti ve Independent with all ADL's Activ e Mental Status Mental Condition Comment Date Status None Active Referrals Description No Information Available
[2020-08-25] MEDS ORDERED: propofoL 200 MG/20 ML VIAL As Ordered ONE (13:25)
[2020-08-25] MEDS ORDERED: LIDOCAINE 2% 100MG/5ML SDV (FOR ANES.) As Ordered ONE (13:25)
--- NOTE | 2020-08-25 13:40 | ROOR ---
Patient Name: Fatou Mcnulty Procedure Date: 08/25/2020 1:21 PM Date of : 1970 Age: 50 Room: [facility] Gender: Female Note Status: Finalized Procedure: Colonoscopy Indications: Screening for colorectal malignant neoplasm Providers: DO Judie Watson MD: Neha Erickson MD Requesting Provider: Medicines: Propofol per Anesthesia Complications: No immediate complications. Procedure: Pre-Anesthesia Assessment: - Prior to the procedure, a History and Physical was performed, and patient medications and allergies were reviewed. The patient is competent. The risks and benefits of the procedure and the sedation options and risks were discussed with the patient. All questions were answered and informed consent was obtained. Patient identification and proposed procedure were verified by the physician, the nurse, the paper hanger and the food technician in the endoscopy suite. Mental Status Examination: alert and oriented. Airway Examination: normal oropharyngeal airway and neck mobility. Respiratory Examination: clear to auscultation. CV Examination: normal. Prophylactic Antibiotics: The patient does not require prophylactic antibiotics. Prior Anticoagulants: The patient has taken no previous anticoagulant or antiplatelet agents. ASA Grade Assessment: II - A patient with mild systemic disease. After reviewing the risks and benefits, the patient was deemed in satisfactory condition to undergo the procedure. The anesthesia plan was to use monitored anesthesia care (MAC). Immediately prior to administration of medications, the patient was re-assessed for adequacy to receive sedatives. The heart rate, respiratory rate, oxygen saturations, blood pressure, adequacy of pulmonary ventilation, and response to care were monitored throughout the procedure. The physical status of the patient was re-assessed after the procedure. The Colonoscope was introduced through the anus with the intention of advancing to the cecum. The scope was advanced to the splenic flexure before the procedure was aborted. Medications were not given. The colonoscopy was extremely difficult due to poor bowel prep with stool present. Findings: Copious quantities of semi-liquid stool was found in the rectum, in the recto-sigmoid colon, in the sigmoid colon, in the descending colon and at the splenic flexure, precluding visualization. lavage attempted, but there was too much large debris to aspirate Impression: - Stool in the rectum, in the recto-sigmoid colon, in the sigmoid colon, in the descending colon and at the splenic flexure. - No specimens collected. Recommendation: - Patient has a contact number available for emergencies. The signs and symptoms of potential delayed complications were discussed with the patient. Return to normal activities tomorrow. Written discharge instructions were provided to the patient. - Repeat colonoscopy within 3 months because the bowel preparation was suboptimal. - Return to physician assistant project manager at appointment to be scheduled. Procedure Code(s): --- Professional --- G0121, 53, Colorectal cancer screening; colonoscopy on individual not meeting criteria for high risk Diagnosis Code(s): --- Professional --- Z12.11, Encounter for screening for malignant neoplasm of colon CPT copyright 2019 [employer]. All rights reserved. The codes documented in this report are preliminary and upon children's zoo caretaker review may be revised to meet current compliance requirements. Orlando Mosqueda DO 08/25/2020 1:40:13 PM Electronically signed by Orlando Mosqueda DO Number of Addenda: 0 Note Initiated On: 08/25/2020 1:21 PM Estimated Blood Loss: Estimated blood loss: none.
[2020-08-25 14:00] VITALS: BP 128/82
== END 2020-08-25 14:11 | disposition home or self-care (01) ==
LOC: M OPP 12:21
PROVIDERS: ATTEND Surgery
DX: Z12.11 Encounter for screening for malignant neoplasm of colon (principal); E78.5 Hyperlipidemia, unspecified; K21.9 Gastro-esophageal reflux disease without esophagitis; R12 Heartburn; F17.210 Nicotine dependence, cigarettes, uncomplicated; Z91.040 Latex allergy status; Z79.899 Other long term (current) drug therapy

== ENCOUNTER → 2020-09-18 | Outpatient (CLI) | payer BC ==
[~2020-09-18] MED LIST changes: -NS 1,000 ML IV ONE
== END ==
LOC: M LABSMTC 09:46
PROVIDERS: ATTEND Anesthesiology
DX: Z01.812 Encounter for preprocedural laboratory examination (principal); Z20.822 Contact with and (suspected) exposure to COVID-19

== ENCOUNTER 2020-09-23 06:18 | Day surgery (SDC) | payer BC ==
[~2020-09-23] VITALS: Ht 154.9 cm; Wt 72.6 kg
[2020-09-23] MEDS ORDERED: mitoMYcin 0.2 MG/VIAL KIT FOR OPHTHALMIC USE (J7315 PER 0.2MG) As Ordered ONE (06:46)
[2020-09-23] MEDS ORDERED: POVIDONE-IODINE 5% OPHTH PREP SOL 30ML As Ordered ONE (06:46)
[2020-09-23] MEDS ORDERED: PROPARACAINE 0.5% OPHTH SOL 15ML As Ordered ONE (07:31)
[2020-09-23] MEDS ORDERED: MIDAZOLAM INJ 2MG/2ML VIAL (J2250 PER 1MG) As Ordered ONE (07:37)
[2020-09-23] MEDS ORDERED: fentaNYL 100 MCG/2 ML INJECTION (J3010) As Ordered ONE (07:39)
[2020-09-23] MEDS ORDERED: [UNRECOGNIZED DRUG - OTHER] OD ONE (07:41)
[2020-09-23 08:20] VITALS: BP 107/64
--- NOTE | 2020-09-24 15:22 | RO ---
OPERATIVE NOTE DATE OF OPERATION: 09/23/2020 PREOPERATIVE DIAGNOSIS: Corneal degeneration with band keratopathy. POSTOPERATIVE DIAGNOSIS: Corneal degeneration with band keratopathy. PROCEDURES: 1. Superficial keratectomy. 2. EDTA chelation with 3%. SURGEON: Edward Butcher DO. IRON MOLDER HELPER: ANESTHESIA: Local with MAC. DESCRIPTION OF PROCEDURE: Patient was seen and identified in the preoperative area. The consent was reviewed. The surgical site was marked. The patient received topical anesthetics on the surface of the surgical eye, and the patient was transferred to the operating room. The eye was prepped and draped in a sterile fashion. Tegaderm was used to isolate the upper and lower eyelids, and a wire lid speculum was placed. A [place] blade was used to remove the epithelium. This was done primarily over the area of the band keratopathy. At that time, a 9 mm metal corneal trephine was used as a well. This was placed over the area of band keratopathy. At that time, the 3% EDTA was placed inside the well. This was done for approximately 30 seconds, and then a Weck spear was used to remove excess medication and syriac the cornea. This was done about three times until all of the calcium keratopathy was removed from the cornea leaving a clear corneal surface, and there was no evidence of any band keratopathy at the end of the procedure. Patient tolerated the procedure very well. A bandage contact lens was placed over the surface of the eye. The wire lid speculum and drapes were removed, and a shield was placed over the surgical eye. The patient was discharged to the PACU in stable condition.
== END 2020-09-23 08:25 | disposition home or self-care (01) ==
LOC: M SDC 06:18
PROVIDERS: ATTEND Ophthalmology
DX: H18.421 Band keratopathy, right eye (principal); K21.9 Gastro-esophageal reflux disease without esophagitis; K59.00 Constipation, unspecified; M19.90 Unspecified osteoarthritis, unspecified site; F17.210 Nicotine dependence, cigarettes, uncomplicated; Z91.040 Latex allergy status; Z79.899 Other long term (current) drug therapy
CPT/HCPCS: 65436; J0600; J2250; J3010

== ENCOUNTER → 2020-10-29 | Outpatient (CLI) | payer BC ==
[~2020-10-29] MED LIST changes: -CELE1CAP9; +CELE1CAP9 PO; +EVEN10003 PO; +OMEP-218 PO
== END ==
LOC: M LABSMTC 10:30
PROVIDERS: ATTEND Anesthesiology
DX: Z01.818 Encounter for other preprocedural examination (principal); Z20.822 Contact with and (suspected) exposure to COVID-19

== ENCOUNTER → 2020-11-18 | Outpatient (CLI) | payer BC ==
--- NOTE | 2020-11-18 11:12 | REPMRS ---
Patient History The patient states she had a clinical breast exam in 11/2020. Patient is postmenopausal. No known family history of cancer. No Hormone Replacement Therapy Indicated problem(s): left breast other indicated problem screening Patient states no breast complaints today. Patient has signed MRS History Sheet. Digital Woman Screen Mammo: November 18, 2020 - Exam #: [id number] Bilateral CC and MLO view(s) were taken. Technologist: Charisse Thompson, Technologist Prior study comparison: November 18, 2019, bilateral digital woman screen mammo performed at [facility]. November 15, 2018, bilateral digital woman screen mammo performed at [facility]. FINDINGS: There are scattered fibroglandular densities. Screening. Digital screening (2D) mammography was performed bilaterally in the CC and MLO projections. Additionally, breast tomosynthesis (3D mammography) was performed bilaterally in the CC and MLO projections. Todays exam was compared to the prior exams. By history, the patient has no complaints of a palpable breast abnormality or other significant breast complaints. The breasts are unchanged in size and shape. There are no rodrick-soft tissue densities or spiculated masses. There is no internal architectural distortion. There are no suspicious rodrick-calcific clusters. Skin thickening or nipple retraction is not present. IMPRESSION: BI-RADS Category 2- Benign Findings. There is no evidence of malignant alteration of the breasts. Followup examination recommended in one year. The [place]para volumetric breast density category is B, there are scattered areas of fibroglandular density. This mammogram was read with the assistance of [employer]na [employer],an FDA approved computer aided detection system for mammography. The lifetime Tyrer-Cuzick score is 7.6% Negative x-ray reports should not delay surgical consultation if a dominant or clinically suspicious mass is present. Not all breast cancers can be identified by mammography. Therefore, we recommend that you continue to perform regular breast self-examination and physical examination and then promptly contact your physician of any concerns or changes. Adenosis and dense breasts may obscure an underlying neoplasm. Assessment: BI-RADS/ACR category 2 mammogram. Benign Findings. Recommendation Routine screening mammogram of both breasts in 1 year. Electronically Signed By: Joaquín Kennedy DO 11/18/20 1111
== END ==
LOC: M WHC 09:17
PROVIDERS: ATTEND Advanced Practice Midwife
DX: Z12.31 Encounter for screening mammogram for malignant neoplasm of breast (principal); Z78.0 Asymptomatic menopausal state

== ENCOUNTER → 2022-10-16 | Outpatient (CLI) | payer BC ==
[~2022-10-16] MED LIST changes: +OMEP-173 PO; -OMEP-218 PO; -OMEP10CA78 PO; +OMEP1CAP71 PO
[2022-10-16 12:54] LABS: ALBUMIN 3.7 G/DL (3.2-5.2); ALKALINE PHOSPHATASE 85 U/L (46-116); ALT/SGPT 18 U/L (7.0-40); AST/SGOT 19 U/L (<34); BILIRUBIN,TOTAL 0.4 MG/DL (0.3-1.2); BLOOD UREA NITROGEN 16 MG/DL (9-23); CALCIUM LEVEL 8.7 MG/DL (8.5-10.1); CARBON DIOXIDE LEVEL 32 MMOL/L (20-31); CHLORIDE LEVEL 106 MMOL/L (98-107); CHOLESTEROL LEVEL 212 MG/DL (<200); CHOLESTEROL RISK RATIO 4.04 (<5); CREATININE FOR GFR 0.74 MG/DL (0.55-1.30); GLOMERULAR FILTRATION RATE > 60.0 (>51); GLUCOSE, FASTING 92 MG/DL (60-100); HDL CHOLESTEROL 52.4 MG/DL (>40); NON-HDL-C 159.6 MG/DL; POTASSIUM SERUM 4.3 MMOL/L (3.5-5.1); SODIUM LEVEL 142 MMOL/L (136-145); TOTAL PROTEIN 6.4 G/DL (5.7-8.2); TRIGLYCERIDES LEVEL 158 MG/DL (<150)
[2022-10-16 12:56] LABS: BASO % 0.3 % (0.0-1.0); EOS # 0.1 10^3/uL (0.0-0.5); EOS % 1.2 % (0.0-3.0); HEMATOCRIT 40.8 % (36.0-47.0); HEMOGLOBIN 13.4 g/dl (12.0-15.5); LYMPH # 1.8 10^3/uL (1.5-5.0); LYMPH % 25.8 % (24.0-44.0); MEAN CORPUSCULAR HEMOGLOBIN 30.7 pg (27.0-33.0); MEAN CORPUSCULAR HGB CONC 32.8 g/dl (32.0-36.5); MEAN CORPUSCULAR VOLUME 93.6 fl (80.0-96.0); MONO # 0.4 10^3/uL (0.0-0.8); NEUTROPHILS # 4.6 10^3/uL (1.5-8.5); NEUTROPHILS % 66.4 % (36.0-66.0); PLATELET COUNT, AUTOMATED 221 10^3/uL (150-450); RED BLOOD COUNT 4.36 10^6/uL (4.00-5.40); WHITE BLOOD COUNT 6.9 10^3/uL (4.0-10.0)
[2022-10-16 12:59] LABS: FREE T4 0.99 NG/DL (0.89-1.76)
[2022-10-16 13:00] LABS: THYROID STIMULATING HORMONE 1.131 uIU/ML (0.55-4.78); TOTAL 25(OH) VITAMIN D 30.6 NG/ML (20.0-100.0)
== END ==
LOC: M WUC 09:25
PROVIDERS: ATTEND Nurse Practitioner Family
DX: E78.2 Mixed hyperlipidemia (principal); K21.9 Gastro-esophageal reflux disease without esophagitis; R63.5 Abnormal weight gain

== ENCOUNTER → 2022-12-12 | Outpatient (CLI) | payer BC | LOC: M WHC 14:53 | PROVIDERS: ATTEND Nurse Practitioner Family | DX: Z12.31 Encounter for screening mammogram for malignant neoplasm of breast (principal) ==

== ENCOUNTER → 2023-10-05 | Outpatient (CLI) | payer BC ==
[~2023-10-05] MED LIST changes: +CELE0.09 PO; -CELE1CAP9 PO
[2023-10-05 16:57] LABS: ALBUMIN 3.9 G/DL (3.2-5.2); ALKALINE PHOSPHATASE 87 U/L (46-116); ALT/SGPT 21 U/L (7.0-40); AST/SGOT 17 U/L (<34); BILIRUBIN,TOTAL 0.4 MG/DL (0.3-1.2); BLOOD UREA NITROGEN 15 MG/DL (9-23); CALCIUM LEVEL 9.2 MG/DL (8.5-10.1); CARBON DIOXIDE LEVEL 31 MMOL/L (20-31); CHLORIDE LEVEL 105 MMOL/L (98-107); CHOLESTEROL LEVEL 262 MG/DL (<200); CHOLESTEROL RISK RATIO 4.53 (<5); CREATININE FOR GFR 0.71 MG/DL (0.55-1.30); GLOMERULAR FILTRATION RATE > 60.0 (>51); GLUCOSE, FASTING 95 MG/DL (60-100); HDL CHOLESTEROL 57.8 MG/DL (>40); NON-HDL-C 204.2 MG/DL; POTASSIUM SERUM 4.1 MMOL/L (3.5-5.1); SODIUM LEVEL 138 MMOL/L (136-145); TOTAL PROTEIN 6.9 G/DL (5.7-8.2); TRIGLYCERIDES LEVEL 161 MG/DL (<150)
[2023-10-05 16:58] LABS: FREE T4 0.94 NG/DL (0.89-1.76); THYROID STIMULATING HORMONE 1.153 uIU/ML (0.55-4.78)
== END ==
LOC: M WUC 12:57
PROVIDERS: ATTEND Nurse Practitioner Family
DX: Z00.00 Encounter for general adult medical examination without abnormal findings (principal); E78.2 Mixed hyperlipidemia

== ENCOUNTER 2024-03-21 07:53 | Day surgery (SDC) | payer BC ==
[~2024-03-21] VITALS: Ht 154.9 cm; Wt 79.4 kg
[~2024-03-21 07:53] MED LIST changes: +ALBU2.5V10 INH; +NS 1,000 ML IV ONE; +VENL75CA47 PO
[2024-03-21] MEDS ORDERED: propofoL 200 MG/20 ML VIAL As Ordered ONE (08:53)
[2024-03-21] MEDS ORDERED: LIDOCAINE 2% 100MG/5ML SDV (FOR ANES.) As Ordered ONE (08:53)
[2024-03-21 09:30] VITALS: TEMP 97
[2024-03-21 10:04] VITALS: BP 140/63; O2SAT 99
== END 2024-03-21 10:06 | disposition home or self-care (01) ==
LOC: M OPP 07:53
PROVIDERS: ATTEND Surgery
DX: Z12.11 Encounter for screening for malignant neoplasm of colon (principal); Z86.010 Personal history of colon polyps; F17.200 Nicotine dependence, unspecified, uncomplicated; Z79.1 Long term (current) use of non-steroidal anti-inflammatories (NSAID); Z79.51 Long term (current) use of inhaled steroids; Z79.899 Other long term (current) drug therapy; Z91.040 Latex allergy status

== ENCOUNTER → 2024-09-16 | Outpatient (CLI) | payer BC ==
[~2024-09-16] MED LIST changes: -NS 1,000 ML IV ONE
== END ==
LOC: M RAD 16:44
PROVIDERS: ATTEND Nurse Practitioner Family
DX: Z12.2 Encounter for screening for malignant neoplasm of respiratory organs (principal); F17.210 Nicotine dependence, cigarettes, uncomplicated; R91.8 Other nonspecific abnormal finding of lung field; K44.9 Diaphragmatic hernia without obstruction or gangrene

== ENCOUNTER → 2024-09-29 | Outpatient (CLI) | payer BC ==
[2024-09-29 13:05] LABS: ALBUMIN 3.6 G/DL (3.2-5.2); ALKALINE PHOSPHATASE 83 U/L (35-104); ALT/SGPT 20 U/L (7.0-40); AST/SGOT 18 U/L (<34); BILIRUBIN,TOTAL 0.3 MG/DL (0.3-1.2); BLOOD UREA NITROGEN 19 MG/DL (9-23); CALCIUM LEVEL 8.7 MG/DL (8.5-10.1); CARBON DIOXIDE LEVEL 30 MMOL/L (20-31); CHLORIDE LEVEL 109 MMOL/L (98-107); CHOLESTEROL LEVEL 235 MG/DL (<200); CHOLESTEROL RISK RATIO 4.89 (<5); CREATININE FOR GFR 0.78 MG/DL (0.55-1.30); GLOMERULAR FILTRATION RATE > 60.0 (>51); GLUCOSE, FASTING 92 MG/DL (60-100); LDL CHOLESTEROL 153.6 MG/DL (<100); POTASSIUM SERUM 4.4 MMOL/L (3.5-5.1); SODIUM LEVEL 144 MMOL/L (136-145); TOTAL PROTEIN 6.6 G/DL (5.7-8.2); TRIGLYCERIDES LEVEL 167 MG/DL (<150)
[2024-09-29 13:09] LABS: FREE T4 1.01 NG/DL (0.89-1.76); THYROID STIMULATING HORMONE 1.705 uIU/ML (0.55-4.78); TOTAL 25(OH) VITAMIN D 13.2 NG/ML (20.0-100.0)
== END ==
LOC: M WUC 08:37
PROVIDERS: ATTEND Nurse Practitioner Family
DX: E78.2 Mixed hyperlipidemia (principal); E55.9 Vitamin D deficiency, unspecified

== ENCOUNTER → 2024-10-20 | Outpatient (CLI) | payer BC | LOC: M WHC 13:26 | PROVIDERS: ATTEND Nurse Practitioner Family | DX: Z12.31 Encounter for screening mammogram for malignant neoplasm of breast (principal); R92.313 Mammographic fatty tissue density, bilateral breasts ==

== ENCOUNTER → 2024-11-11 | Outpatient (CLI) | payer BC ==
[~2024-11-11] MED LIST changes: +ADVA1AER9 INH; +PREDOPD OD; +SUCR1ORA PO
== END ==
LOC: M PLARAD 13:12
PROVIDERS: ATTEND Internal Medicine Pulmonary Disease
DX: R91.8 Other nonspecific abnormal finding of lung field (principal)
CPT/HCPCS: 78815; A9552

== ENCOUNTER 2024-11-14 08:36 | Day surgery (SDC) | payer BC ==
[~2024-11-14] VITALS: Ht 154.9 cm; Wt 77.7 kg
[2024-11-14] MEDS ORDERED: fentaNYL 100 MCG/2 ML INJECTION As Ordered ONE (10:21)
[2024-11-14] MEDS ORDERED: propofoL 200 MG/20 ML VIAL As Ordered ONE (10:22)
[2024-11-14] MEDS ORDERED: LIDOCAINE 2% 100MG/5ML SDV (FOR ANES.) As Ordered ONE (10:22)
[2024-11-14 10:36] VITALS: TEMP 96.8
[2024-11-14 10:51] VITALS: BP 113/66; O2SAT 97
== END 2024-11-14 10:58 | disposition home or self-care (01) ==
LOC: M OPP 08:36
PROVIDERS: ATTEND Surgery
DX: K22.11 Ulcer of esophagus with bleeding (principal); K21.00 Gastro-esophageal reflux disease with esophagitis, without bleeding; K29.50 Unspecified chronic gastritis without bleeding; K31.7 Polyp of stomach and duodenum; Z90.49 Acquired absence of other specified parts of digestive tract; F17.210 Nicotine dependence, cigarettes, uncomplicated; J45.909 Unspecified asthma, uncomplicated; Z90.710 Acquired absence of both cervix and uterus; Z79.899 Other long term (current) drug therapy; Z88.1 Allergy status to other antibiotic agents; Z88.8 Allergy status to other drugs, medicaments and biological substances; Z91.040 Latex allergy status
CPT/HCPCS: 43239; 88305; J3010

== ENCOUNTER → 2025-03-11 | Outpatient (CLI) | payer BC | LOC: M RAD 17:11 | PROVIDERS: ATTEND Internal Medicine Pulmonary Disease | DX: R91.1 Solitary pulmonary nodule (principal); R91.8 Other nonspecific abnormal finding of lung field ==